=== PATIENT | female | born 1930 | race Caucasian/White ===

== ENCOUNTER 2018-07-04 00:01 | Emergency (ER) | payer MEDICARE, BC ==
[~2018-07-04] VITALS: Ht 177.8 cm; Wt 65.9 kg
[2018-07-04] MEDS ORDERED: ALTACE10 MG PO (00:21)
[2018-07-04] MEDS ORDERED: SPIRONOLACT50 M1 PO (00:22)
[2018-07-04] MEDS ORDERED: VITAMIN D31000 UNI1 PO (00:23)
[2018-07-04] MEDS ORDERED: MAGNESIUM250 M1 PO (00:24)
[2018-07-04] MEDS ORDERED: SOTALOL AF80 MG PO (00:25)
[2018-07-04] MEDS ORDERED: ELIQUIS5 MG PO (00:26)
[2018-07-04] MEDS ORDERED: ATORVASTATIN CA40 MG PO (00:26)
[2018-07-04] MEDS ORDERED: TRAZODONE50 MG PO (00:28)
[2018-07-04] MEDS ORDERED: SYSTANE ULTRA OU (00:29)
[2018-07-04] MEDS ORDERED: ATIVAN1 M1 PO (00:30)
[2018-07-04 01:32] LABS: URINE BILIRUBIN - DIPSTICK NEGATIVE (NEGATIVE); URINE BLOOD DIPSTICK NEGATIVE (NEGATIVE); URINE COLOR YELLOW; URINE GLUCOSE - DIPSTICK NEGATIVE (NEGATIVE); URINE KETONE TRACE mg/dL (NEGATIVE); URINE LEUK ESTERASE SMALL (Negative); URINE NITRITE - DIPSTICK POSITIVE (Negative); URINE PH 5.5 (4.5-8.0); URINE PROTEIN - DIPSTICK NEGATIVE (NEG-TRACE); URINE UROBILINOGEN - DIPSTICK 0.2 E.U./dL (0.2)
[2018-07-04 01:41] LABS: URINE CLARITY CLEAR
[2018-07-04 01:46] LABS: HEMATOCRIT 35.6 % (37.0-47.0); IMMATURE GRANULOCYTES 0.3 % (0.0-5.0); MEAN CORPUSCULAR HGB 32.3 pG CALC (26.0-32.0); MEAN CORPUSCULAR HGB CONC 33.7 g/L CALC (32.0-36.0); NEUT# 5.64 thou/uL (2.00-7.15); RED BLOOD COUNT 3.71 mill/uL (4.20-5.60)
[2018-07-04 02:00] LABS: BILIRUBIN, TOTAL 1.1 mg/dL (0.0-1.4); CREATININE 1.1 mg/dL (0.5-1.0); POTASSIUM 4.4 mmol/l (3.5-5.1); TOTAL PROTEIN 6.7 g/dL (6.3-8.2)
[2018-07-04 02:00] LABS: URINE BACTERIA MANY hpf; URINE SQUAMOUS EPITHELIAL CELL FEW EPI/hpf (0-FEW)
[2018-07-04] MEDS ORDERED: CIPROFLOXACN500 MG PO (02:12)
[2018-07-04 03:50] VITALS: BP 171/67
== END 2018-07-04 02:51 ==
LOC: ED 00:01
PROVIDERS: Emergency Medicine
DX: Z04.3 Encounter for examination and observation following other accident (principal); N39.0 Urinary tract infection, site not specified; I10 Essential (primary) hypertension; I25.10 Atherosclerotic heart disease of native coronary artery without angina pectoris; I48.91 Unspecified atrial fibrillation

== ENCOUNTER 2019-10-01 17:31 | Observation (INO) | payer MEDICARE, BC ==
[~2019-10-01] VITALS: Ht 177.8 cm; Wt 64.0 kg
[~2019-10-01 17:31] MED LIST: ALTACE10 MG PO; ATIVAN1 M1 PO; ATORVASTATIN CA40 MG PO; CIPROFLOXACN500 MG PO; ELIQUIS5 MG PO; MAGNESIUM250 M1 PO; SOTALOL AF80 MG PO; SPIRONOLACT25 MG PO; SYSTANE ULTRA OU; TRAZODONE50 MG PO; VITAMIN D31000 UNI1 PO
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
--- NOTE | 2019-10-01 17:55 | NUR ---
PT COMPLIANT WITH REQUESTS OF STAFF FOR VS AND LABS. PT CRIED AND STATES "MY LASTMONTH". EMS REPORTS X1 YEAR
[2019-10-01 17:59] LABS: HEMOGLOBIN 11.6 g/dl (12.0-16.0); IMMATURE GRANULOCYTES 0.5 % (0.0-5.0); MEAN CELL VOLUME 95.4 fL CALC (80.0-100.0); MEAN CORPUSCULAR HGB 31.6 pG CALC (26.0-32.0); MEAN CORPUSCULAR HGB CONC 33.1 g/dL CAL (32.0-36.0); NEUT# 5.23 thou/uL (2.00-7.15); RED BLOOD COUNT 3.67 mill/uL (4.20-5.60); RED CELL DISTRI WIDTH 13.9 % (11.5-15.5)
[2019-10-01 18:14] LABS: ALKALINE PHOSPHATASE 89 u/l (38-126); ANION GAP 14 (6-22 (CALC)); BILIRUBIN, TOTAL 0.8 mg/dL (0.0-1.4); BUN 28 mg/dL (8-23); BUN/CREATININE RATIO 27 (12-20 (CALC)); CARBON DIOXIDE 21 mmol/l (22-30); CHLORIDE 107 mmol/l (95-108); ETHYL ALCOHOL 0 mg/dl (0-30); GFR 52 ML/MIN (>=60 (CALC)); GFR FOR AFR.AMER. > 60 ML/MIN (>=60 (CALC)); POTASSIUM 5.1 mmol/l (3.5-5.1); SGOT/AST 34 u/l (9-36); SODIUM 136 mmol/l (137-146)
[2019-10-01 18:17] LABS: PROTHROMBIN TIME 10.9 SECONDS (9.0-12.5)
--- NOTE | 2019-10-01 18:20 | NUR ---
NOTIFIED TECHNOLOGY LEAD BRANDI HOOVER SITTER FOR PT.
--- NOTE | 2019-10-01 18:30 | NUR ---
GRANDDAUGHTER "HEALTHCARE PROXY" AT BEDSIDE AND PT BECOMES MORE PLEASANT. PER GRANDDAUGHTER NO ONE FROM FAMILY HAS SEEN GRANDMOTHER X2 MONTHS FACILITY (SNF) IS ON LOCKDOWN DT CORONAVIRUS
--- NOTE | 2019-10-01 18:59 | NUR ---
PT SITTING ON BEDSIDE CONVERSING PLEASANTLY WITH GRANDDAUGHTER. URINE OBTAINED FOR CULTURE
[2019-10-01 19:16] LABS: URINE BILIRUBIN - DIPSTICK NEGATIVE (NEGATIVE); URINE BLOOD DIPSTICK NEGATIVE (NEGATIVE); URINE COLOR YELLOW; URINE GLUCOSE - DIPSTICK NEGATIVE (NEGATIVE); URINE KETONE NEGATIVE (NEGATIVE); URINE LEUK ESTERASE SMALL (NEGATIVE); URINE NITRITE - DIPSTICK NEGATIVE (Negative); URINE PROTEIN - DIPSTICK NEGATIVE (NEG-TRACE); URINE SPECIFIC GRAVITY 1.015; URINE UROBILINOGEN - DIPSTICK 0.2 E.U./dL (0.2)
--- NOTE | 2019-10-01 19:26 | NUR ---
OBTAINED COVID19 SWAB TO RT NARE, NASOPHARYNGEAL. PT TOLERATED WELL. PT STATES 'IM GOING TO [facility] FOR EVERYTHING SHE IS WORTH"
[2019-10-01 19:43] LABS: URINE BACTERIA RARE hpf; URINE SQUAMOUS EPITHELIAL CELL FEW EPI/hpf (0-FEW)
--- NOTE | 2019-10-01 20:26 | NUR ---
BP IS YELLING, AND THREATNING STAFF. SHE STATES THAT SHE WANTS TO GO HOME AND SHE DOES NOT UNDERSTAND WHY SHE IS HERE. SHE STATES "I AM GOING TO [facility]ONE BECAUSE YOU ALL ARE WAKOS! CRAZY!" PT STATES THAT SHE WANTS TO USE THE RESTROOM. IT WAS OFFERED TO HELP HER TO BEDSIDE CAMMODE, SHE DENIED HELP AND THREATENED ME IF I TOUCHED HER. SHE MOVED TO THE CAMMODE WITH UNSTEADY GIAT. SHE IS CRYING SHE IS ON CAMMODE. REFUSED ANY HELP OFF AND TOLD ME TO LEAVE THE ROOM. INITIALLY THE DOOR WINDOW WAS BEING COVERED FOR HER PRIVACY AND COMFORT, SHE GOT UPSET AT ME AND TOLD ME THAT SHE WILL JUST COVER HERSELF UP WITH A BLANKET AND FOR ME TO LEAVE THE ROOM
--- NOTE | 2019-10-01 21:14 | NUR ---
ATTEMPTED TO START IV FOR BLOOD CULTURES AND ANTIBIOTIC TREATMENT. PT REFUSED STATING THAT SHE DOES NOT LIKE IVs AND THAT THEY HURT. IT WAS EXPLAINED TO THE PT THE IMPORTANCE OF RECIEVING THE TREATMENT AND THAT THE "PAIN" FEELING FROM IV INITIATION IS BRIEF. PT CONTINUED TO REFUSE STATING WE CAN GET THE BLOOD "FROM HER A". CHARGE NURSE IS MADE AWARE OF SITUATION AND SHE STATES TO TRY AND TALK TO PT TO SEE IF SHE COMPLIES.
--- NOTE | 2019-10-01 21:55 | NUR ---
PT TRANSPORTED TO ICU VIA STRETCHER STABLE AND IN NO DISTRESS. UPON ARRIVAL PT WAS COMBATIVE AND AGITATED. CARE ASSUMED TO TREMAINE Admission Note Report Given to: Transported by: Wheelchair X Stretcher Transported with: X Nurse Transporter X Patent IV O2 Plate Printer Location: X ICU MS2
[2019-10-01 22:00] VITALS: BP 163/82
--- NOTE | 2019-10-01 22:00 | NUR ---
89 yr old VERY uncooperative female admitted icu5 per stretcher from er. pt yelling @ staff when instructed to sit on side of stretcher. speaks of being in senior living. after much yelling from pt, pt was assisted to bed x2 assists. bed weight obtained. threat monitoring analyst shows sinus rhythm hr 69. #22 lfa saline lock. pt is VERY confused. history obtained per er record & old chart. oriented to room. pt instructed about oliver act but cont to talk about being "arrested & in senior living." sitter @ bedside. fall precautions initiated.
--- NOTE | 2019-10-01 23:00 | NUR ---
eyes closed. no distress. sitter @ bedside.
--- NOTE | 2019-10-02 02:00 | NUR ---
resting quietly. resps even & unlabored. no apparent distress.
--- NOTE | 2019-10-02 03:00 | NUR ---
up to bsc. voided small amt. assisted back to bed. blood drawn & sent to lab. vern @ bedside.
[2019-10-02 03:36] LABS: HEMOGLOBIN 11.9 g/dl (12.0-16.0); IMMATURE GRANULOCYTES 0.5 % (0.0-5.0); MEAN CELL VOLUME 96.9 fL CALC (80.0-100.0); MEAN CORPUSCULAR HGB 31.2 pG CALC (26.0-32.0); MEAN CORPUSCULAR HGB CONC 32.2 g/dL CAL (32.0-36.0); NEUT# 10.43 thou/uL (2.00-7.15); RED BLOOD COUNT 3.82 mill/uL (4.20-5.60); RED CELL DISTRI WIDTH 13.9 % (11.5-15.5)
[2019-10-02 04:12] LABS: ANION GAP 12 (6-22 (CALC)); BUN 24 mg/dL (8-23); BUN/CREATININE RATIO 29 (12-20 (CALC)); CARBON DIOXIDE 23 mmol/l (22-30); CHLORIDE 107 mmol/l (95-108); CREATININE 0.8 mg/dL (0.5-1.0); GFR > 60 ML/MIN (>=60 (CALC)); GFR FOR AFR.AMER. > 60 ML/MIN (>=60 (CALC)); POTASSIUM 4.7 mmol/l (3.5-5.1); SODIUM 137 mmol/l (137-146)
--- NOTE | 2019-10-02 05:59 | NUR ---
eyes closed. no distress. gambling monitor shows sinus rhythm. sitter @ bedside. no distress.
[2019-10-02 08:00] VITALS: BP 137/79
--- NOTE | 2019-10-02 08:00 | NUR ---
PT RESTING IN BED, NO SIGNS OF DISTRESS NOTED, RESP EVEN AND UNLABORED, PT ALERT TO SELF, KEEPS REPEATING THAT SHE IS CONFUSED. DISCUSSED POC, PT REQUIRES REINFORCEMENT. ASSESSMENT COMPLETED, CALL LIGHT IN REACH,CONTINUE TO MONITOR.
--- NOTE | 2019-10-02 11:29 | NUR ---
PT IN BED, SITTER AT BEDSIDE, FIDGETING WITH MONITOR WIRES, NO SIGNS OF DISTRESS NOTED, RESP EVEN AND UNLABORED. CALL LIGHT IN REACH,CONTINUE TO MONITOR.
--- NOTE | 2019-10-02 11:56 | NUR ---
PHONED DR MORTON FOR INCREASED AGITATION. NEW ORDERS RECEIVED.
--- NOTE | 2019-10-02 12:31 | NUR ---
PT REFUSED LUNCH TRAY, PT CALMER NOW, SITTER AT BEDSIDE, CONTINUE TO MONITOR.
--- NOTE | 2019-10-02 13:07 | NUR ---
PT STANDING AT WINDOW WHEN SITTER ATTEMPTED TO ASSIST PT BACK TO BED PT YELLING AND WAVING HER ARMS AROUND, ONCE PT FINALLY BACK IN BED, PT MEDICATED WITH ATIVAN IV, SITTER AT BEDSIDE, CALL LIGHT IN REACH,CONTINUE TO MONITOR.
--- NOTE | 2019-10-02 15:00 | NUR ---
PT CONTINUES TO GET UP OUT OF BED, ASSISTED TO CHAIR, THEN TO BED. PT FIDGETING WITH IV AND LEADS. SITTER AT BEDSIDE. CALL LIGHT IN REACH,CONTINUE TO MONITOR.
[2019-10-02 15:29] VITALS: BP 107/68
--- NOTE | 2019-10-02 16:15 | NUR ---
PT SITTING IN RECLINER REMAINS CONFUSED, VOICES NO NEEDS OR COMPLAINTS AT THIS TIME, CALL LIGHT IN REACH, SITTER AT BEDSIDE, CONTINUE TO MONITOR.
--- NOTE | 2019-10-02 16:53 | NUR ---
PT TRYING TO GET OUT OF THE ROOM, BEING AGGRESIVE TOWARDS STAFF, ATTEMPTING TO KEEP PT CALM, ASSISTED PT TO BED. PT SITTING ON SIDE OF BED, SITTER AT BEDSIDE. WILL NOTIFY MD FOR FURTHER ORDERS, CONTINUE TO MONITOR.
--- NOTE | 2019-10-02 17:03 | NUR ---
PT SPEAKING TO GRANDDAUGHTER ON THE PHONE
--- NOTE | 2019-10-02 17:48 | NUR ---
NEW ORDERS RECEIVED FROM
--- NOTE | 2019-10-02 18:15 | NUR ---
PT SITTING ON SIDE OF BED EATING DINNER, PT MEDICATED AT THIS TIME, SITTER AT BEDSIDE, CONTINUE TO MONITOR.
[2019-10-02 20:00] VITALS: BP 02/50
--- NOTE | 2019-10-02 20:00 | NUR ---
eyes closed. no distress. school lunch monitor shows sinus vonda hr 58. #22 lfa saline lock. voids per bsc. sittr remains @ bedside.
--- NOTE | 2019-10-02 22:00 | NUR ---
eyes closed. no distress. trawl net maker shows sinus vonda hr 54.
[2019-10-03] VITALS (7 sets, daily range): BP systolic 89–115; BP diastolic 39–78
--- NOTE | 2019-10-03 00:01 | NUR ---
eyes closed. resp even & unlabored. cardiac cath lab technologist shows sinus vonda hr 50. sitter @ bedside.
--- NOTE | 2019-10-03 02:00 | NUR ---
resting quietly. resps even & unlabored. no aparent distress.
--- NOTE | 2019-10-03 04:20 | NUR ---
lab hre. blood drawn.
[2019-10-03 04:38] LABS: HEMATOCRIT 33.6 % (37.0-47.0); HEMOGLOBIN 10.9 g/dl (12.0-16.0); MEAN CELL VOLUME 98.5 fL CALC (80.0-100.0); MEAN CORPUSCULAR HGB CONC 32.4 g/dL CAL (32.0-36.0); RED BLOOD COUNT 3.41 mill/uL (4.20-5.60); RED CELL DISTRI WIDTH 14.3 % (11.5-15.5)
[2019-10-03 05:04] LABS: ALKALINE PHOSPHATASE 62 u/l (38-126); ANION GAP 9 (6-22 (CALC)); BILIRUBIN, TOTAL 0.6 mg/dL (0.0-1.4); BUN 27 mg/dL (8-23); BUN/CREATININE RATIO 28 (12-20 (CALC)); CARBON DIOXIDE 25 mmol/l (22-30); CHLORIDE 110 mmol/l (95-108); GFR 52 ML/MIN (>=60 (CALC)); GFR FOR AFR.AMER. > 60 ML/MIN (>=60 (CALC)); POTASSIUM 4.9 mmol/l (3.5-5.1); SGOT/AST 31 u/l (9-36); SODIUM 139 mmol/l (137-146); TOTAL PROTEIN 5.6 g/dL (6.3-8.2)
[2019-10-03 05:05] LABS: ALBUMIN 2.9 g/dL (3.2-5.0)
--- NOTE | 2019-10-03 07:15 | NUR ---
REPORT RECEIVED FROM MAGO PENALOZA. PT RESTING IN BED SUPINE; LEFT LEANING. AWAKENS TO TACTILE STIMULI. ALERT AND ORIENTED TO PERSON ONLY. PT DOES NOT REMEMBER WHY SHE CAME TO HOSPITAL OR AGITATION. DENIES PAIN. RESPIRATIONS EVEN AND UNLABORED ON ROOM AIR. VS STABLE; AFEBRILE. LUNGS ARE CLEAR; HR REGULAR; GOOD PULSES. DILAN HOSE INTACT TO BLE. ASSISTED WITH RESPOSITIONING; NOW SITTING UP SEMI FOWLERS. PLEASANT. WARM TOWEL PROVIDED TO WASH FACE. PLAN OF CARE REVIEWED. PT ENCOURAGED TO VERBALIZE CONCERNS. STATES UNDERSTANDING. SAFETY MEAURES IN PLACE. CALL LIGHT WITHIN REACH.
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
--- NOTE | 2019-10-03 09:14 | NUR ---
DR. PEDRAZA AT BEDSIDE FOR EVAL.
--- NOTE | 2019-10-03 09:33 | NUR ---
HECTOR ACT REMOVED PER DR. PEDRAZA; SITTER NO LONGER AT BEDSIDE. PT SITTING UP IN RECLINER; ROOM CLOSE TO NURSING STATION AND CURTAINS OPEN FOR GOOD VISUALIZATION OF PT. PT HAS NO REQUESTS OR CONCERNS AT THIS TIME. SAFETY MEASURES IN PLACE. CALL LIGHT WITHIN REACH.
[2019-10-03] MEDS ORDERED: KEFLEX500 MG PO (10:01)
--- NOTE | 2019-10-03 11:26 | NUR ---
UP TO BSC TO VOID; BACK UP IN CHAIR. CASE MANAGEMENT ARRANGING TRANSPORTATION TO [facility].
--- NOTE | 2019-10-03 13:40 | NUR ---
PT SITTING UP WATCHING TV; ALERT AND COOPERATIVE. NO BEHAVIORS NOTED. PT REMAINS ON AIRBORNE/CONTACT PRECAUTIONS PENDING COVID SWAB. CALL LIGHT WITHIN REACH.
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
--- NOTE | 2019-10-03 14:59 | NUR ---
IV site discontinued, cath intact. No edema , no redness, voices no discomfort.
--- NOTE | 2019-10-03 15:08 | NUR ---
Discharge instructions given. Patient verbalizes understanding of same. Discharged in stable condition via wheelchair to [facility] with family. All belongings sent with pt.
--- NOTE | 2019-10-04 10:51 | NUR ---
Notified patient's granddaughter, La ([phone]), of Covid results. La requested that I call [facility] (patient's current residence) with results. Spoke with Teri Proctor at [phone] and notified her of results. [facility]i Esthela requested that I fax results to her at [phone]. Results faxed.
== END 2019-10-03 15:10 | disposition home or self-care (01) ==
LOC: ED 17:31 → ED-I 19:55 → ED 20:06 → ICU 20:07
PROVIDERS: Family Medicine; Nurse Practitioner Family; ADMIT Internal Medicine; ATTEND Internal Medicine
DX: R45.851 Suicidal ideations (principal); N39.0 Urinary tract infection, site not specified; I10 Essential (primary) hypertension; I25.10 Atherosclerotic heart disease of native coronary artery without angina pectoris; I48.91 Unspecified atrial fibrillation; E78.5 Hyperlipidemia, unspecified; F03.90 Unspecified dementia, unspecified severity, without behavioral disturbance, psychotic disturbance, mood disturbance, and anxiety; B96.20 Unspecified Escherichia coli [E. coli] as the cause of diseases classified elsewhere; Z20.828 Contact with and (suspected) exposure to other viral communicable diseases; Z95.1 Presence of aortocoronary bypass graft
CPT/HCPCS: J2060

== ENCOUNTER 2020-03-10 10:41 | Inpatient (IN) | payer MEDICARE, BC ==
[~2020-03-10] VITALS: Ht 170.2 cm; Wt 67.0 kg
--- NOTE | 2020-03-10 | NUR ---
PT RESTLESS AT TIMES, FORGETFUL. NO SIGNS OF COMBATIVE BEHAVIOR OR AGRESSION.
[~2020-03-10 10:41] MED LIST changes: +KEFLEX500 MG PO
--- NOTE | 2020-03-10 11:00 | NUR ---
PT ASSISTED TO ROOM VIA W/C FOR BEDSIDE TRIAGE
[2020-03-10] MEDS ORDERED: LASIX 20 MG TAB20 MG PO (11:18)
[2020-03-10] MEDS ORDERED: QUETIAPINE FUMA25 MG PO (11:18)
[2020-03-10] MEDS ORDERED: ZOLOFT25 MG PO (11:19)
--- NOTE | 2020-03-10 11:20 | NUR ---
PER GRANDDAUGHTER (WHO IS AT BEDDSIDE) PT HAS BEEN SLEEPING MORE AND GENERALIZED WEAKNESS AA WELL DECREASED APPETITE. NOTIFIED
--- NOTE | 2020-03-10 11:22 | NUR ---
HOME AT BEDSIDE
[2020-03-10 12:20] LABS: HEMATOCRIT 38.7 % (37.0-47.0); HEMOGLOBIN 12.5 g/dl (12.0-16.0); IMMATURE GRANULOCYTES 0.6 % (0.0-5.0); MEAN CELL VOLUME 95.3 fL CALC (80.0-100.0); MEAN CORPUSCULAR HGB 30.8 pG CALC (26.0-32.0); MEAN CORPUSCULAR HGB CONC 32.3 g/dL CAL (32.0-36.0); NEUT# 11.22 thou/uL (2.00-7.15); RED BLOOD COUNT 4.06 mill/uL (4.20-5.60); RED CELL DISTRI WIDTH 13.2 % (11.5-15.5)
[2020-03-10 12:29] LABS: URINE BLOOD DIPSTICK LARGE (NEGATIVE); URINE GLUCOSE - DIPSTICK NEGATIVE (NEGATIVE); URINE KETONE TRACE mg/dL (NEGATIVE); URINE NITRITE - DIPSTICK NEGATIVE (Negative); URINE PROTEIN - DIPSTICK 30 mg/dL (NEG-TRACE); URINE SPECIFIC GRAVITY 1.015; URINE UROBILINOGEN - DIPSTICK 0.2 E.U./dL (0.2)
--- NOTE | 2020-03-10 12:36 | NUR ---
P NOW WITH IV ESTABLISHED, BLOOD DRAWN, URINE COLLECTED, PCXR TAKEN. PT IN NO DISTRESS, RESTS IN THE STRETCHER WITH GRANDDAUGHTER AT BEDSIDE.
[2020-03-10 12:39] LABS: URINE BILIRUBIN - DIPSTICK SMALL (NEGATIVE); URINE COLOR BROWN; URINE LEUK ESTERASE MODERATE (NEGATIVE)
[2020-03-10 12:40] LABS: URINE BACTERIA MANY hpf; URINE EPITHELIAL CELLS MANY EPI/hpf (0-FEW); URINE RBC 50-100 RBC/hpf (0-5); URINE TRIP PHOS CRYSTALS MANY lpf; URINE WBC 20-50 WBC/hpf (0-5)
[2020-03-10 12:41] LABS: PROTHROMBIN TIME 12.5 SECONDS (9.0-12.5)
[2020-03-10 12:43] LABS: INTERNATIONAL NORMALIZED RATIO 1.3 RATIO (0.7-1.3)
[2020-03-10 12:45] LABS: ANION GAP 17 (6-22 (CALC)); BUN 77 mg/dL (8-23); BUN/CREATININE RATIO 44 (12-20 (CALC)); CARBON DIOXIDE 20 mmol/l (22-30); CHLORIDE 102 mmol/l (95-108); CREATININE 1.8 mg/dL (0.5-1.0); GFR 27 ML/MIN (>=60 (CALC)); GFR FOR AFR.AMER. 32 ML/MIN (>=60 (CALC)); POTASSIUM 4.2 mmol/l (3.5-5.1); SGOT/AST 29 u/l (9-36); SODIUM 135 mmol/l (137-146)
[2020-03-10 12:48] LABS: ALBUMIN 4.2 g/dL (3.2-5.0); ALKALINE PHOSPHATASE 112 u/l (38-126); BILIRUBIN, TOTAL 1.2 mg/dL (0.0-1.4); TOTAL PROTEIN 7.3 g/dL (6.3-8.2)
--- NOTE | 2020-03-10 13:35 | NUR ---
PT AND FAMILY AWARE OF PENDING ADMISSION. PT CONTINUES BEFORE WITHOUT DETERIORATION OF CONDITION. GRANDDAUGHTER KARLY REMAINS AT BEDSIDE.
--- NOTE | 2020-03-10 14:30 | NUR ---
PT ARRIVED TO THE FLOOR VIA STRETCHER ACCOMPANIED BY ED STAFF AND PT'S ROMIE. PT TRANSFERED FROM STRETCHER TO BED X2 ASSIST. PT IS ALERT AND ORIENTED WITH FORGETFULLNESS. VS OBTAINED AND ASSESSMENT COMPLETED. RESPIRATIONS EVEN AND UNLABORED ON RA. LUNGS SOUND CLEAR. PEDAL PULSES ARE STRONG. PT DENIES ANY PAIN OR DISCOMFORT AT THIS TIME. PT ORIENTED TO ROOM AND CALL CLEANING SYSTEM. BED ALARM ACTIVE FOR PT SAFETY. CALL CLEANING WITHIN REACH, WILL CONTINUE TO MONITOR.
--- NOTE | 2020-03-10 14:35 | NUR ---
REPORT CALLED TO SHERLYN GOLD AND PT WAS THEN TAKEN TO [id number] WITHOUT INCIDENT. PT LEAVES ER IN STABLE CONDITION.
[2020-03-10 14:40] VITALS: BP 132/50
--- NOTE | 2020-03-10 17:12 | NUR ---
PT RESTING IN BED, NO S/S OF DISTRESS AT THIS TIME. SAFETY PRECAUTIONS IN PLACE. WILL CONTINUE TO MONITOR.
[2020-03-10 19:00] VITALS: BP 100/45
--- NOTE | 2020-03-10 20:00 | NUR ---
PT SEROQUEL AND BETABACE HELD DUE TO BRADYCARDIA, PT ON TELE, TO NOTIFY PHYSION IF HR FALLS BELOW 40.
[2020-03-11] VITALS: BP 124/57
[2020-03-11 04:00] VITALS: BP 129/70
--- NOTE | 2020-03-11 06:58 | NUR ---
REPORT RECEIVED FROM ANDREW TOTH. PT RESTING IN BED NO S/S OF DISTRESS AT THIS TIME. WILL CONTINUE TO MONITOR.
[2020-03-11 07:25] VITALS: BP 125/46
--- NOTE | 2020-03-11 07:25 | NUR ---
PT RESTING IN BED, WITH HER EYES CLOSED. EASILY AROUSED. PT ALERT AND ORIENTED. RESPIRATIONS EVEN AND UNLABORED ON RA LUNGS SOUND CLEAR. PEDAL PULSES ARE WEAK. PT DENIES ANY PAIN HOWEVER DOES COMPLAIN OF BEING COLD, PT PROVIDED WITH A WARM BLANKET. BED ALARM ACTIVE FOR PT SAFETY. WILL CONTINUE TO MONITOR.
--- NOTE | 2020-03-11 09:43 | NUR ---
PT RESTING IN BED, ASSISTED PT TO SIT UP ON THE EDGE OF THE BED TO EAT BREAKFAST. PT BREAKFAST WARMED UP PER PT REQUEST. ASSISTED PT WITH CUTTING UP WAFFLES. PT BEGAN CRYING, STATING "THIS IS JUST WRONG TO BE PUT IN A BARN AND HAVE THE DOOR LOCKED." JANITORIAL MANAGER REORIENTED PT. PT STATES "NO ONE ASKED ME WHAT I WANTED, I DON'T WANT TO BE IN HERE THIS IS WRONG." JANITORIAL MANAGER ALLOWED FOR PT TO EXPRESS FEELINGS.
[2020-03-11 10:44] LABS: HEMATOCRIT 39.9 % (37.0-47.0); HEMOGLOBIN 12.8 g/dl (12.0-16.0); MEAN CELL VOLUME 94.8 fL CALC (80.0-100.0); MEAN CORPUSCULAR HGB 30.4 pG CALC (26.0-32.0); MEAN CORPUSCULAR HGB CONC 32.1 g/dL CAL (32.0-36.0); RED BLOOD COUNT 4.21 mill/uL (4.20-5.60); RED CELL DISTRI WIDTH 13.2 % (11.5-15.5)
[2020-03-11 11:02] VITALS: BP 142/57
[2020-03-11 11:03] LABS: CREATININE 1.1 mg/dL (0.5-1.0); MAGNESIUM 2.6 mg/dL (1.6-2.3); POTASSIUM 4.5 mmol/l (3.5-5.1)
[2020-03-11 11:32] LABS: TSH, 3RD GENERATION 3.15 uIU/mL (0.47 - 4.68)
--- NOTE | 2020-03-11 12:01 | NUR ---
PT SITTING UP IN BED EATING LUNCH. NO S/S OF DISTRESS AT THIS TIME. SAFETY PRECAUTIONS IN PLACE. WILL CONTINUE TO MONITOR.
[2020-03-11 14:55] VITALS: BP 125/41
--- NOTE | 2020-03-11 16:27 | NUR ---
PT RESTING IN BED WITH EYES CLOSED. NO S/S OF DISTRESS AT THIS TIME. SAFETY PRECAUTIONS IN PLACE. WILL CONTINUE TO MONITOR.
[2020-03-11 19:00] VITALS: BP 115/43
--- NOTE | 2020-03-11 20:03 | NUR ---
RECEIEVED REPORT FROM SHERLYN GOLD. ASSESSMENT AND VITALS COMPLETED. PT IS A LITTLE CONFUSED AND EMOTIONAL AT TIMES. RESPIRATIONS ARE STRONG BILATERALLY. LUNG SOUNDS ARE CLEAR. HEART RHYTHM IS SINUS ERIK AT 55 BPM. BOWEL SOUNDS ARE ACTIVE, LAST REPORTED BM 03/11/20. RADIAL AND PEDAL PULSES ARE STRONG WITH NORMAL CPAILLARY REFILL. #20 IN RFA, SALINE LOCKED, SITE APPEARS HEALTHY AND PATENT. PT REPORT DOES NOT REPORT ANY PAIN OR DISCOMFORT AT THIS TIME. ALL SAFETY MEASURES ARE IN PLACE. WILL CONTINUE TO MONITOR.
--- NOTE | 2020-03-11 23:02 | NUR ---
PER DR PEDRAZA PT 2100 BETAPACE WAS HELD.
--- NOTE | 2020-03-12 00:03 | NUR ---
PT SEEN EYED CLOSED IN NO APPARENT DISTRESS OR DISCOMFORT. CALL CLEANING WITHIN REACH. WILL CONTINUE TO MONITOR.
[2020-03-12 00:31] VITALS: BP 105/55
[2020-03-12 03:30] VITALS: BP 117/45
[2020-03-12 04:00] VITALS: BP 124/52
--- NOTE | 2020-03-12 04:00 | NUR ---
PT SEEN RESTING WITH EYES CLOSED. CALL CLEANING WITHIN REACH. WILL CONTINUR TO MONITOR.
[2020-03-12 05:30] LABS: MEAN CELL VOLUME 94.6 fL CALC (80.0-100.0); MEAN CORPUSCULAR HGB 30.5 pG CALC (26.0-32.0); MEAN CORPUSCULAR HGB CONC 32.2 g/dL CAL (32.0-36.0); RED BLOOD COUNT 3.54 mill/uL (4.20-5.60); RED CELL DISTRI WIDTH 13.2 % (11.5-15.5)
[2020-03-12 05:38] LABS: HEMATOCRIT 33.5 % (37.0-47.0); HEMOGLOBIN 10.8 g/dl (12.0-16.0)
[2020-03-12 05:43] LABS: CREATININE 1.2 mg/dL (0.5-1.0); POTASSIUM 4.6 mmol/l (3.5-5.1)
[2020-03-12 06:04] LABS: ALBUMIN 3.1 g/dL (3.2-5.0); BILIRUBIN, TOTAL 0.6 mg/dL (0.0-1.4); TOTAL PROTEIN 5.5 g/dL (6.3-8.2)
[2020-03-12 07:35] VITALS: BP 114/51
--- NOTE | 2020-03-12 07:35 | NUR ---
PT SLEEPING, AWAKENED TO COMPLETE ASSESSMENT. A&O TO SELF, REORIENTED PT TO TIME AND PLACE, PT EASILY REORIENTED. PT DENIES ANY PAIN AT THIS TIME. NO DISTRESS NOTED. PT CURRENTLY BRADYCARDIC AT 52 BPM, BETAPASTE TO BE HELD THIS MORNING . NO OTHER NEEDS AT THIS TIME. ASSESSMENT COMPLETED. DISCUSSED POC. CALL LIGHT IN REACH. CONTINUE TO MONITOR.
[2020-03-12 10:20] VITALS: BP 101/58
[2020-03-12] MEDS ORDERED: MIRTAZAPINE15 MG PO (10:49)
[2020-03-12] MEDS ORDERED: KEFLEX500 MG PO (10:51)
--- NOTE | 2020-03-12 13:15 | NUR ---
PT SITTING IN BED EATING LUNCH. NO DISTRESS NOTED. CALL LIGHT IN REACH. CONTINUE TO MONITOR.
--- NOTE | 2020-03-12 16:33 | NUR ---
Discharge instructions given. Patient verbalizes understanding of same. Discharged in stable condition via Wheelchair to [facility] accompanied by staff. All belongings sent with pt.
== END 2020-03-12 16:32 | disposition home health service (06) | DRG 690 ==
LOC: ED 10:41 → ED-I 12:41 → ED 12:51 → MS2 12:52
PROVIDERS: Nurse Practitioner Family; Student in an Organized Health Care Education/Training Program; ADMIT Internal Medicine; ATTEND Internal Medicine
DX: N39.0 Urinary tract infection, site not specified (principal); N17.9 Acute kidney failure, unspecified; I10 Essential (primary) hypertension; E78.5 Hyperlipidemia, unspecified; R00.1 Bradycardia, unspecified; I25.10 Atherosclerotic heart disease of native coronary artery without angina pectoris; F03.90 Unspecified dementia, unspecified severity, without behavioral disturbance, psychotic disturbance, mood disturbance, and anxiety; I48.91 Unspecified atrial fibrillation; B96.20 Unspecified Escherichia coli [E. coli] as the cause of diseases classified elsewhere; Z95.1 Presence of aortocoronary bypass graft; Z20.828 Contact with and (suspected) exposure to other viral communicable diseases

== ENCOUNTER 2021-01-25 11:12 | Observation (INO) | payer MEDICARE, BC ==
[~2021-01-25] VITALS: Ht 170.2 cm; Wt 75.0 kg
[~2021-01-25 11:12] MED LIST changes: +LASIX 20 MG TAB20 MG PO; +MIRTAZAPINE15 MG PO; +QUETIAPINE FUMA25 MG PO; +ZOLOFT25 MG PO
[2021-01-25 12:40] LABS: IMMATURE GRANULOCYTES 0.2 % (0.0-5.0); MEAN CELL VOLUME 94.2 fL CALC (80.0-100.0); MEAN CORPUSCULAR HGB 30.4 pG CALC (26.0-32.0); MEAN CORPUSCULAR HGB CONC 32.3 g/dL CAL (32.0-36.0); NEUT# 2.67 thou/uL (2.00-7.15); RED BLOOD COUNT 4.31 mill/uL (4.20-5.60); RED CELL DISTRI WIDTH 15.2 % (11.5-15.5)
[2021-01-25 12:41] LABS: HEMATOCRIT 40.6 % (37.0-47.0); HEMOGLOBIN 13.1 g/dl (12.0-16.0)
[2021-01-25 12:59] LABS: ALBUMIN 3.7 g/dL (3.2-5.0); ALKALINE PHOSPHATASE 95 u/l (38-126); ANION GAP 13 (6-22 (CALC)); BUN 27 mg/dL (8-23); BUN/CREATININE RATIO 30 (12-20 (CALC)); CARBON DIOXIDE 24 mmol/l (22-30); CHLORIDE 102 mmol/l (95-108); CREATININE 0.9 mg/dL (0.5-1.0); GFR 59 ML/MIN (>=60 (CALC)); GFR FOR AFR.AMER. > 60 ML/MIN (>=60 (CALC)); LIPASE 145 u/l (23-300); MAGNESIUM 2.1 mg/dL (1.6-2.3); POTASSIUM 3.6 mmol/l (3.5-5.1); SGOT/AST 41 u/l (9-36); SODIUM 136 mmol/l (137-146); TOTAL PROTEIN 6.9 g/dL (6.3-8.2)
[2021-01-25 13:06] LABS: BILIRUBIN, TOTAL 0.9 mg/dL (0.0-1.4)
[2021-01-25] MEDS ORDERED: LASIX 20 MG TAB20 MG PO (14:33)
[2021-01-25] MEDS ORDERED: LOPRESSOR25 M1 PO (14:49)
[2021-01-25 19:00] VITALS: BP 152/70
[2021-01-26 04:00] VITALS: BP 137/96
[2021-01-26 06:49] LABS: HEMATOCRIT 43.5 % (37.0-47.0); HEMOGLOBIN 14.2 g/dl (12.0-16.0); IMMATURE GRANULOCYTES 0.3 % (0.0-5.0); MEAN CELL VOLUME 94.6 fL CALC (80.0-100.0); MEAN CORPUSCULAR HGB 30.9 pG CALC (26.0-32.0); MEAN CORPUSCULAR HGB CONC 32.6 g/dL CAL (32.0-36.0); NEUT# 4.66 thou/uL (2.00-7.15); RED BLOOD COUNT 4.6 mill/uL (4.20-5.60)
[2021-01-26 06:59] LABS: ALBUMIN 3.7 g/dL (3.2-5.0); ALKALINE PHOSPHATASE 117 u/l (38-126); ANION GAP 14 (6-22 (CALC)); BILIRUBIN, TOTAL 0.9 mg/dL (0.0-1.4); BUN 25 mg/dL (8-23); BUN/CREATININE RATIO 31 (12-20 (CALC)); C-REACTIVE PROTEIN 0.7 mg/dL (0-0.9); CARBON DIOXIDE 26 mmol/l (22-30); CHLORIDE 102 mmol/l (95-108); CREATININE 0.8 mg/dL (0.5-1.0); GFR > 60 ML/MIN (>=60 (CALC)); GFR FOR AFR.AMER. > 60 ML/MIN (>=60 (CALC)); SGOT/AST 42 u/l (9-36); SODIUM 137 mmol/l (137-146); TOTAL PROTEIN 6.5 g/dL (6.3-8.2)
[2021-01-26 07:01] LABS: POTASSIUM 4.5 mmol/l (3.5-5.1)
[2021-01-26 07:58] VITALS: BP 134/72
[2021-01-26 11:14] VITALS: BP 102/55
[2021-01-26 16:47] VITALS: BP 107/51
[2021-01-26 19:00] VITALS: BP 102/48
[2021-01-27 04:00] VITALS: BP 132/78
[2021-01-27 08:00] VITALS: BP 139/67
[2021-01-27 14:51] VITALS: BP 87/37
[2021-01-27 17:00] VITALS: BP 100/70
[2021-01-27 19:24] VITALS: BP 129/64
[2021-01-28 04:59] VITALS: BP 148/75
[2021-01-28 07:23] VITALS: BP 159/79
[2021-01-28 09:49] VITALS: BP 159/79
== END 2021-01-28 18:10 ==
LOC: ED 11:12 → ED-I 12:17 → ED 12:17 → ED-I 13:10 → ED 13:33 → MS2 13:34 → ED-I 17:04 → MS2 18:04
PROVIDERS: Family Medicine; Nurse Practitioner; ADMIT Hospitalist; ATTEND Hospitalist
DX: U07.1 COVID-19 (principal); I10 Essential (primary) hypertension; I25.10 Atherosclerotic heart disease of native coronary artery without angina pectoris; I48.91 Unspecified atrial fibrillation; E78.5 Hyperlipidemia, unspecified; F03.90 Unspecified dementia, unspecified severity, without behavioral disturbance, psychotic disturbance, mood disturbance, and anxiety; Z95.1 Presence of aortocoronary bypass graft
CPT/HCPCS: G0378